=== PATIENT | male | born 1965 | race Caucasian/White ===

== ENCOUNTER 2019-11-18 07:24 | Day surgery (SDC) | payer OTHER ==
[~2019-11-18] VITALS: Ht 188 cm; Wt 126.2 kg
[2019-11-18 07:45] VITALS: BP 149/94; PULSE 75; TEMP 98.3
[2019-11-18] MEDS ORDERED: MOTRIN 200200 MG/TAB PO (07:47)
[2019-11-18 09:05] VITALS: BP 126/85; PULSE 65; TEMP 97.7
--- NOTE | 2019-11-18 09:05 | NUR ---
The patient arrived back to [facility] at this time. The patient ambulated from the cart to the recliner in his room with the stand by assistance of one nurse and appeared to tolerate the activity well. Post procedure vital signs were started at thist sven. The patient appears alert and agrees to try some apple juice at this time. Call light is within reach. The patient denies any needs. Will continue to monitor the patient.
[2019-11-18 09:20] VITALS: BP 125/88; PULSE 61
--- NOTE | 2019-11-18 09:20 | NUR ---
The patient appeared to tolerate the apple juice well and requests to try some more at this time. Vital signs appear stable. Call light is within reach. Will continue to monitor the patient.
[2019-11-18 09:30] VITALS: BP 133/86; PULSE 53
--- NOTE | 2019-11-18 09:40 | NUR ---
Discharge instructions given to patient. All questions answered to his satisfaction. Handed to patient are a thank you card, discharge information, diagnosis information, and a discharge med sheet.
--- NOTE | 2019-11-18 09:45 | NUR ---
Pt transferred out of hospital via wheelchair and [employer] RN student, assist to private vehicle driven by .
== END 2019-11-18 09:45 | disposition home or self-care (01) ==
LOC: SDCO 07:24
DX: Z12.11 Encounter for screening for malignant neoplasm of colon (principal); D12.2 Benign neoplasm of ascending colon; K62.1 Rectal polyp; Z83.71 Family history of colonic polyps; Z86.010 Personal history of colon polyps
CPT/HCPCS: J2704; J3010; J7030